=== PATIENT | male | born 1945 | race Caucasian/White ===

== ENCOUNTER 2018-11-29 13:02 | Emergency (ER) | payer OTHER ==
[~2018-11-29] VITALS: Ht 170.2 cm; Wt 95.3 kg
[~2018-11-29 13:02] MED LIST: CLARINEX5 MG/TAB PO; OSEL75CA PO
[2018-11-29] MEDS ORDERED: NORVASC2.5 M1 (13:26)
[2018-11-29] MEDS ORDERED: METOPROLOL ER-1 EACH (13:27)
== END 2018-11-29 15:10 | disposition home or self-care (01) ==
LOC: ER 13:02
DX: R42 Dizziness and giddiness (principal); T42.4X5A Adverse effect of benzodiazepines, initial encounter

== ENCOUNTER 2024-01-24 07:00 | Outpatient (CLI) | payer OTHER ==
[~2024-01-24 07:00] MED LIST changes: +METOPROLOL ER-1 EACH; +NORVASC2.5 M1
== END 2024-01-24 07:21 | disposition home or self-care (01) ==
LOC: MRI 07:00
PROVIDERS: ATTEND Psychiatry & Neurology Clinical Neurophysiology
DX: G30.1 Alzheimer's disease with late onset (principal)
CPT/HCPCS: 70551